=== PATIENT | male | born 1990 | race Caucasian/White ===

== ENCOUNTER 2021-12-12 08:29 | Emergency (ER) | payer OTHER ==
[~2021-12-12] VITALS: Ht 175.3 cm; Wt 83.9 kg
[2021-12-12] MEDS ORDERED: IBUPROFEN 600 MG TABLET ONE (08:59)
[2021-12-12] MEDS ORDERED: ACETAMINOPHEN ES 500 MG TABLET ONE (08:59)
[2021-12-12] MEDS ORDERED: ACETAMINOPHEN ES 500 MG TABLET PO ONE (09:00)
[2021-12-12] MEDS ORDERED: IBUPROFEN 600 MG TABLET PO ONE (09:00)
--- NOTE | 2021-12-12 09:04 | NUR ---
[id number] and lapd, clearance for booking, got rearended c/o neck, head, and shoulder pain, no loc 7/10 ps. On room air, breathing evenly and unlabored. Kept comfortable, will continue to monitor accordingly.
[2021-12-12] MEDS ORDERED: IBUP-1957 PO (11:36)
[2021-12-12 11:42] VITALS: BP 118/66
--- NOTE | 2021-12-12 11:43 | NUR ---
patient left in stable condition accompanied by [employer] going to [facility] in no distress.
== END 2021-12-12 11:43 ==
LOC: ER 08:43
DX: S16.1XXA Strain of muscle, fascia and tendon at neck level, initial encounter (principal); V49.49XA Driver injured in collision with other motor vehicles in traffic accident, initial encounter; Y93.89 Activity, other specified; Y92.413 State road as the place of occurrence of the external cause; Y99.8 Other external cause status
CPT/HCPCS: 72050-TC; 72125-TC